=== PATIENT | female | born 1965 | race African-American/Black ===

== ENCOUNTER 2020-07-29 09:50 | Emergency (ER) | payer OTHER ==
[~2020-07-29] VITALS: Ht 167.6 cm; Wt 81.8 kg
[~2020-07-29 09:50] MED LIST: CYMBALTA 60MG60 MG PO; ENTRESTO 24 MG1 EACH PO; LASIX 40MG TABL40 MG PO; LOPRESSOR 550 MG/TAB PO; PROMETHAZINE12.5 M5 PO; XANAX 1MG1 MG PO; ZESTRIL40 MG PO
[2020-07-29 09:58] VITALS: TEMP 98.3
[2020-07-29 10:30] LABS: BASO # 0.1 (0.0-0.2); BASO % 0.6 % (0.0-2.0); EOS # 0.2 (0.0-0.7); EOS % 2.2 % (0-4.0); GRAN # 5.6 (1.4-6.5); LYMPH # 1.6 (1.2-3.4); LYMPH % 19.8 % (20.0-51.0); MEAN CELL VOLUME 74 fl (80.0-100.0); MEAN CORPUSCULAR HGB CONC 30 g/dl (33.0-37.0); MEAN PLATELET VOLUME 9.1 fl (7.4-10.4); MONO # 0.7 (0.1-0.6); PLATELET COUNT 375 K/mm3 (130-400); RED BLOOD COUNT 4.36 M/mm3 (4.10-5.30); REDCELL DISTRIBUTION WIDTH-CV 16.3 % (11.5-14.5)
[2020-07-29 10:41] LABS: HEMATOCRIT 32.2 % (37.0-47.0); HEMOGLOBIN 9.5 g/dl (12.5-16.0); MEAN CORPUSCULAR HEMOGLOBIN 22 pg (27.0-31.0)
[2020-07-29 10:43] LABS: INR 1.1 (0.8-3.0); PROTHROMBIN TIME 11.8 SECONDS (9.7-12.8)
[2020-07-29 10:47] LABS: ALANINE AMINOTRANSFERASE 14 U/L (4-34); ALBUMIN 4.3 gm/dL (3.5-5.0); ALKALINE PHOSPHATASE 72 U/L (50-136); ANION GAP 10 mmol/L (7-16); AST,SGOT 25 U/L (15-37); BILIRUBIN,TOTAL 0.5 mg/dL (0.0-1.0); BLOOD UREA NITROGEN 10 mg/dL (7-17); CALCIUM 9.2 mg/dL (8.4-10.2); CARBON DIOXIDE 22 mmol/L (22-30); CHLORIDE 108 mmol/L (98-107); CREATININE, serum 0.75 (0.52-1.25); GLUCOSE 115 mg/dL (74-106); LIPASE 74 U/L (23-300); MAGNESIUM 1.9 mg/dL (1.6-2.3); POTASSIUM 4.2 mmol/L (3.4-5.0); SODIUM 139 mmol/L (137-145)
[2020-07-29 11:03] LABS: TROPONIN-I < 0.012 ng/mL (0.000-0.035)
[2020-07-29] MEDS ORDERED: DOXYCYCLINE 10100 MG PO (14:18)
[2020-07-29] MEDS ORDERED: ATIVAN 0.50.5 MG/TAB PO (14:18)
[2020-07-29 14:45] VITALS: BP 150/89; PULSE 102
== END 2020-07-29 14:45 | disposition home or self-care (01) ==
LOC: COL.ER 09:50
PROVIDERS: Emergency Medicine
DX: J18.9 Pneumonia, unspecified organism (principal); F41.9 Anxiety disorder, unspecified; Z20.828 Contact with and (suspected) exposure to other viral communicable diseases; Z86.79 Personal history of other diseases of the circulatory system; Z88.0 Allergy status to penicillin
CPT/HCPCS: J2060; Q9967